=== PATIENT | female | born 1975 ===

== ENCOUNTER 2019-05-09 10:39 | Emergency (ER) | payer SELFPAY ==
--- NOTE | 2019-05-09 11:38 | Emergency Department Report ---
Blank Doc - Documentation Documentation: 44-year-old female that presents with a fall with headache and right eye hemat mylene with swelling. This initial assessment/diagnostic orders/clinical plan/treatment(s) is/are subject to change based on patient's health status, clinical progression and re- assessment by fellow clinical providers in the ED. Further treatment and workup at subsequent clinical providers discretion. Patient/guardians urged not to elope from the ED as their condition may be serious if not clinically assessed and managed. Initial orders include: 1- Patient sent to [facility] for further evaluation and treatment 2- CT head/orbit
--- NOTE | 2019-05-09 15:20 | Cat Scan Report ---
CT BRAIN: 05/09/2019 INDICATION / CLINICAL INFORMATION: headache/eye swelling s/p fall. COMPARISON: None available. FINDINGS: BRAIN/INTRACRANIAL STRUCTURES: Unenhanced CT images of the brain demonstrate no evidence of acute int racranial abnormality. Ventricles and sulci are within normal limits of size and shape for a patient of this age. There is no evidence of intracranial hemorrhage or mass. Chronic subcortical encephalomalacia is pres ent in the left frontal periventricular white matter. There is a prominent focal right parietal scalp hematoma. Bone windows are otherwise unremarkable. EXTRACRANIAL STRUCTURES: Incidental note is made of opacification of the right maxillary and right fr ontal sinus. Paranasal sinuses are otherwise clear. IMPRESSION: No acute intracranial abnormality. Scalp injury noted All CT scans at this location are performed using dose reduction to ALARA by means of automated expos ure control. Signer Name: Damon Morley MD Signed: 05/09/2019 3:15 PM Workstation Name: [id number]
--- NOTE | 2019-05-09 15:22 | Cat Scan Report ---
FACIAL CT 05/09/2019 HISTORY: Headache. Eye swelling. Recent trauma. FINDINGS: CT images of the orbits and facial bones were obtained. Images are evaluated in the axial, coronal, and sagittal planes. There is no evidence of intraorbital mass. Some left periorbital soft tissue swelling is present. Osseous orbital structures are intact. Incidental note is made of near complete opacification of the right frontal and maxillary sinuses. Th e paranasal sinuses are otherwise clear. 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 IMPRESSION: Left periorbital soft tissue swelling. Right-sided maxillary and frontal sinus opacification. No evidence of osseous injury. All CT scans at this location are performed using dose reduction to ALARA by means of automated expos ure control. Signer Name: Damon Morley MD Signed: 05/09/2019 3:18 PM Workstation Name: [id number]
--- NOTE | 2019-05-09 17:43 | Emergency Department Report ---
ED Fall HPI - General Chief Complaint: Fall Stated Complaint: FALL INJURY/HEAD PAIN Time Seen by Provider: 05/09/19 11:36 Source: patient Mode of arrival: Wheelchair - History of Present Illness Initial Comments: This is a 44-year-old -[place] female who presents to the emergency room with a black eye status post fall. Patient states she was walking out of her house into her garage last Thursday when she miss stepped and female on the concrete steps. Patient states she fell backward and noticed swelling to occipital scalp. She figured it would resolve on its own and waited a few days. She noticed swelling and bruising of right eye 4 days ago and called her PCP who started her to follow up in the emergency room. Patient states she had to get her children to school and her so she was unable to come in for evaluation. She denies visual changes, headache, nausea vomiting, loss of consciousness, numbness or tingling. MD Complaint: fall Onset/Timin -: week(s) Fall From: standing When Fall Occurred: # days [employer] (7) Fall Witnessed: yes, by family Place Fall Occurred: home Loss of Consciousness: none Prolonged Down Time?: no Symptoms Prior to Fall: none Location: head (occipital scalp), eyes (right eye bruising and swelling) Severity scale (0 -10): 0 Context: tripped/slipped Associated Symptoms: denies - Related Data Allergies Allergy/AdvReac Type Severity Reaction Status Date / Time No Known Allergies Allergy Unverified 05/09/19 10:51 ED Review of Systems ROS: Stated complaint: FALL INJURY/HEAD PAIN Other details as noted in HPI Constitutional: denies: chills, fever Eyes: other (bruising and swelling of right eye) Respiratory: denies: cough, shortness of breath, wheezing Cardiovascular: denies: chest pain, palpitations Gastrointestinal: denies: abdominal pain, nausea, diarrhea Skin: other (swelling to occipital scalp ). denies: rash, lesions Neurological: denies: headache, weakness, paresthesias Psychiatric: denies: anxiety, depression ED Past Medical Hx - Past Medical History Previous Medical History?: Yes Additional medical history: MS - Surgical History Past Surgical History?: No - Social History Smoking Status: Never Smoker Substance Use Type: None ED Physical Exam - General Limitations: No Limitations General appearance: alert, in no apparent distress - Head Head exam: Present: atraumatic, normocephalic, other - Eye Eye exam: Present: PERRL, EOMI, periorbital swelling (right eye, purplish bruising and swelling right lower eyelid, TTP). Absent: scleral icterus, nystagmus Pupils: Present: normal accommodation - ENT ENT exam: Present: mucous membranes moist - Respiratory Respiratory exam: Present: normal lung sounds bilaterally. Absent: respiratory distress - Cardiovascular Cardiovascular Exam: Present: regular rate, normal rhythm. Absent: systolic murmur, diastolic murmur, rubs, gallop - GI/Abdominal GI/Abdominal exam: Present: soft, normal bowel sounds - Extremities Exam Extremities exam: Present: normal inspection - Back Exam Back exam: Present: full ROM. Absent: paraspinal tenderness, rash noted - Neurological Exam Neurological exam: Present: alert, oriented X3, normal gait, other (Alert and oriented, no deficits. No facial droop. Tongue midline. Extraocular movements intact bilaterally. Facial sensation intact to light touch in V1, V2, & V3 distribution bilaterally. Strength 5/5 in all extremities. Sensation intact to light touch in 4 extremities.) - Expanded Neurological Exam Expanded Speech: Present: fluid speech Cranial nerves: EOM's Intact: Normal, Gag Reflex: Normal, Tongue Deviation: Normal, Nystagmus: Normal, Facial Sensation: Normal, Facial Palsy with Forehead Movement: Normal, Facial Palsy without Forehead Movement: Normal Sensory exam: Upper Extremity Light Touch: Normal, Upper Extremity Pin Prick: Normal, Upper Extremity Temperature: Normal, UE 2 Point Discrimination: Normal Motor strength exam: RUE: 5, LUE: 5 Best Eye Response ([place]): (4) open spontaneously Best Motor Response (Daindra): (6) obeys commands Best Verbal Response (Diandra): (5) oriented Diandra Total: 15 - Psychiatric Psychiatric exam: Present: normal affect, normal mood - Skin Skin exam: Present: warm, dry, intact, normal color. Absent: rash ED Course Vital Signs 05/09/19 10:51 Temperature 98.8 F Pulse Rate 79 Respiratory 16 Rate Blood Pressure 156/92 O2 Sat by Pulse 100 Oximetry ED Medical Decision Making - Radiology Data Radiology results: report reviewed FACIAL CT 05/09/2019 HISTORY: Headache. Eye swelling. Recent trauma. FINDINGS: CT images of the orbits and facial bones were obtained. Images are evaluated in the axial, coronal, and sagittal planes. There is no evidence of intraorbital mass. Some left periorbital soft tissue swelling is present. Osseous orbital structures are intact. Incidental note is made of near complete opacification of the right frontal and maxillary sinuses. The paranasal sinuses are otherwise clear. 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 IMPRESSION: Left periorbital soft tissue swelling. Right-sided maxillary and frontal sinus opacification. No evidence of osseous injury. CT BRAIN: 05/09/2019 INDICATION / CLINICAL INFORMATION: headache/eye swelling s/p fall. COMPARISON: None available. FINDINGS: BRAIN/INTRACRANIAL STRUCTURES: Unenhanced CT images of the brain demonstrate no evidence of acute intracranial abnormality. Ventricles and sulci are within normal limits of size and shape for a patient of this age. There is no evidence of intracranial hemorrhage or mass. Chronic subcortical encephalomalacia is present in the left frontal periventricular white matter. There is a prominent focal right parietal scalp hematoma. Bone windows are otherwise unremarkable. EXTRACRANIAL STRUCTURES: Incidental note is made of opacification of the right maxillary and right frontal sinus. Paranasal sinuses are otherwise clear. IMPRESSION: No acute intracranial abnormality. Scalp injury noted - Medical Decision Making This is a 44 y.o. female presents with right black eye s/p fall 1 week ago. Denies LOC, chest pain, visual changes, SOB, nausea or vomiting. Patient was examined by me. CT of facial bones and head obtained. Left periorbital soft tissue swelling. Right-sided maxillary and frontal sinus opacification. No evidence of osseous injury. No acute intracranial abnormality. Scalp injury noted. Patient instructed to follow up with her primary care 2-3 days. Given strict return instructions. Apply ice to areas to improve swelling. Patient informed of results. She agrees with ER plan. Patient discharged home in stable condition. Follow up with PCP in 2-3 days. Critical care attestation.: If time is entered above; I have spent that time in minutes in the direct care of this critically ill patient, excluding procedure time. ED Disposition Clinical Impression: Periorbital hematoma of right eye Fall Qualifiers: Encounter type: initial encounter Qualified Code(s): W19.XXXA - Unspecified fall, initial encounter Disposition: TO HOME OR SELFCARE Is pt being admited?: No Condition: Stable Instructions: Black Eye (ED), Fall Prevention (ED) Additional Instructions: Apply ice to eye to improve symptoms. Monitor bruising and swelling. Follow-up with your primary care doctor in 2-3 days. Referrals: JUWAN CUEVAS MD [Staff Physician] - 3-5 Days [facility] [Outside] - 3-5 Days [facility] [Outside] - 3-5 Days Time of Disposition: 18:21
[2019-05-09 18:32] VITALS: BP 149/88
== END 2019-05-09 18:31 | disposition home or self-care (01) ==
LOC: ED 10:39
DX: H05.231 Hemorrhage of right orbit (principal); W19.XXXA Unspecified fall, initial encounter; Y93.89 Activity, other specified; Y92.008 Other place in unspecified non-institutional (private) residence as the place of occurrence of the external cause; Y99.8 Other external cause status
CPT/HCPCS: 70450; 70480